=== PATIENT | male | born 1970 | race Caucasian/White ===

== ENCOUNTER 2022-06-19 03:12 | Emergency (ER) | payer OTHER, SELFPAY ==
[2022-06-19 03:13] VITALS: BP 164/107; PULSE 76; RESP 18; TEMP 36.8; O2SAT 96; BMI 37.0
--- NOTE | 2022-06-19 03:29 | EDS_ITS ---
HPI History of Present Illness Chief Complaint: Laceration Narrative Narrative: Patient presents with right index finger pain. He states he was picking up a his finger got trapped in a hole between 2 metal pieces and it was heavy and it lacerated the dorsal and the palmar side of his index finger. It was pulling distally and he thinks it hit bone. He has a little bit of numbness to his index finger but he is able to move it in flexion and extension. He is right- hand dominant. Last tetanus unknown. PFSH PFSH Home Medications NK 06/19/22 [History Last Taken Unknown] Allergy/AdvReac Type Severity Reaction Status Date / Time No Known Allergies Allergy Verified 06/19/22 03:17 Social History Smoking Status: Never smoker ROS ROS ED Constitutional Constitutional ED: Denies chills, fever(s) or sweats Eyes Eyes: Denies blurry vision or change in vision ENT ENT ED: Denies ear pain or sore throat Cardiovascular Cardiovascular: Denies chest pain, palpitations or racing heartbeat Respiratory/Chest Respiratory/Chest: Denies cough, dyspnea or sputum Gastrointestinal Gastrointestinal: Denies abdominal pain, constipation, diarrhea, nausea or vomiting Genitourinary Genitourinary ED: Denies dysuria, hematuria or urinary frequency Musculoskeletal Musculoskeletal: Denies arthralgias, myalgias or neck pain Integumentary Reports other Details: Laceration right index finger ; Denies abscess, Abrasions or rash Neurologic Neurologic: Denies headache(s) or weakness Psychiatric Psychiatric: Denies anxiety, depression, suicidal ideation or suicidal thoughts Endocrine Endocrinology: Denies polydipsia or polyuria EXAM Physical Exam Const Vital Signs: 06/19/22 03:13 Temperature 98.3 F Temperature Source Oral Pulse Rate 76 Respiratory Rate 18 Blood Pressure 164/107 H Blood Pressure Mean 126 Pulse Ox 96 Oxygen Delivery Method Room Air Positive well nourished General Appearance ED: NAD HEENT Reports moist mucous membranes Eyes PERRL and EOMs intact bilaterally Resp normal respiratory effort Cardio regular rate and regular rhythm Neuro oriented x3 and CN's II-XII intact bilaterally Sensorium / Orientation: alert Skin Skin Narrative: Laceration to the index finger on the dorsal surface about 2.5 cm. 2..5 cm l aceration tissue on the volar surface adjacent to this. Patient maintains flexion extension at the DIP and PIP. Brisk cap refill to the index finger. MDM MDM MDM Narrative Medical decision making narrative: Patient declines analgesia. I did update his tetanus today. X-ray of the right hand on my interpretation shows no acute fracture or bony injury. Patient was soaked for about 20 minutes. Laceration was anesthetized with 3 cc of lidocaine without epinephrine. Wound was irrigated. The volar surface wound was sutured with a combination of 3-0 and 4-0 sutures. There is a 3-0 suture on each lateral aspect of the wounds. The central portions of the laceration have 4?0. This was needed to pull the wound margins together. Patient refuses to have the dorsal surface wound sutured. He states it is well approximated and he does not want any more sutures. I counseled him on wound care. Follow-up with [facility]. Impression: 1. 2.5 cm laceration dorsal surface right index finger 2. 2.5 cm volar surface laceration right index finger 3. Left index finger contusion Lab Data Attestation: I reviewed the patient's lab results. Discharge Plan Triage Chief Complaint: Laceration ED Provider: Scooby Lau Dx/Rx/DC Orders Prescriptions: No Action NK Primary Care Provider: Care Physician,No Primary Referrals: Care Physician,No Primary [Primary Care Provider] -
--- NOTE | 2022-06-19 03:45 | RAD_ITS ---
STUDY: X-RAY - RIGHT HAND REASON FOR EXAM: Male, 51 years old. index finger injury TECHNIQUE: 3 view(s) of the hand. COMPARISON: None. FINDINGS: Joint space narrowing and osteophytosis lateral aspect of the radiocarpal joint. Normal distal radioulnar joint. Normal visualized carpal bones. Normal carpal articulations Normal carpometacarpal articulation of the thumb. Normal second through fifth carpometacarpal joints. Normal metacarpi. Normal metacarpophalangeal joint of the thumb. Normal interphalangeal joint of the thumb. Normal proximal and distal phalanges of the thumb. Normal metacarpophalangeal joints of the second through fifth fingers. Normal proximal and distal interphalangeal joints of the second through fifth fingers. Normal phalanges of the second through fifth fingers. Mild soft tissue swelling of the index finger. No radiopaque foreign bodies. Overlying material obscures fine bony detail. RAD/Hand Min 3 Views IMPRESSION: Mild soft tissue swelling index finger. Degenerative changes lateral wrist. Electronically Signed: Martir Lozada MD at 4:34 EST Reading Location ID and State: [id number] / , Service support ,
[2022-06-19] MEDS: Diphth,Pertuss(Acell),Tet Vac 0.5 ML Vial IM (04:03)
[2022-06-19 05:46] VITALS: BP 124/88; PULSE 62; RESP 17; O2SAT 96
[2022-06-19] MEDS: Lidocaine 1% (20 ml mdv) 20 ML Vial INFILT (05:51)
== END 2022-06-19 05:59 | disposition home or self-care (01) ==
PROVIDERS: Emergency Provider Student in an Organized Health Care Education/Training Program; Visit Provider Student in an Organized Health Care Education/Training Program
DX: S61.210A Laceration without foreign body of right index finger without damage to nail, initial encounter (principal); S60.022A Contusion of left index finger without damage to nail, initial encounter; Z23 Encounter for immunization; X58.XXXA Exposure to other specified factors, initial encounter
CPT/HCPCS: 73130; 90471; 90715; 99282